=== PATIENT | female | born 1955 | race Caucasian/White ===

== ENCOUNTER 2019-02-15 10:46 | Emergency (ER) | payer OTHER ==
[~2019-02-15] VITALS: Ht 157.5 cm; Wt 104.3 kg
[~2019-02-15 10:46] MED LIST: BENADRYL25 MG PO; COLACE100 MG PO; CYCLOBENZAPRINE5 MG PO; HYDROXYZINE HCL25 M2 PO; IBU800 MG PO; LAMICTAL 25 MG25 MG PO; LORAZEPAM 0.50.5 MG PO; LOVASTATIN 20 M20 MG PO; MAPAP500 M1 PO; MICARDIS 80 MG80 MG PO; NORVASC10 MG PO; PERCOCET 5-3251 EACH PO; SYNTHROID100 MC1 PO; TORADOL 10 MG T10 MG PO; VITAMIN D1000 UNI1 PO; ZANAFLEX2 M1 PO
[2019-02-15 11:39] LABS: HEMOGLOBIN 13.4 gm/dL (12.0-15.0); MCH 29.3 pg (26.0-34.0); MCHC 32.6 g/dL (28.0-37.0); MCV 89.7 fL (80.0-100.0); PLATELET COUNT 202 thou/uL (150-400); RBC 4.58 mil/uL (4.20-5.00); RDW 13.1 % (10.5-14.5)
[2019-02-15 11:58] LABS: ANION GAP 9 mmol/L (7-16); BUN 13 mg/dL (7-18); CALCIUM 9.8 mg/dL (8.5-10.1); CHLORIDE 96 mmol/L (98-107); CO2 28 mmol/L (21-32); CREATININE 0.9 mg/dL (0.6-1.0); GLUCOSE 95 mg/dL (74-106); POTASSIUM 3.1 mmol/L (3.5-5.1); SODIUM 133 mmol/L (136-145)
[2019-02-15 12:07] LABS: ALBUMIN 3.5 g/dL (3.4-5.0); SGOT 28 U/L (15-37); SGPT 31 U/L (30-65); TOTAL BILIRUBIN 0.4 mg/dL (<0.1-1.0); TOTAL PROTEIN 7.4 g/dL (6.4-8.2); TROPONIN-I <0.06 ng/mL (<0.06)
[2019-02-15 12:34] LABS: AMP/METHAMP Negative (Negative); BARBITURATES Negative (Negative); BENZODIAZEPINES Negative (Negative); COCAINE Negative (Negative); METHADONE Negative (Negative); OPIATES Negative (Negative); PCP Negative (Negative)
[2019-02-15 12:54] LABS: ABSOLUTE NEUTROPHILS 3.2 thou/uL (1.4-8.2)
[2019-02-15 12:56] LABS: ANISOCYTOSIS SLIGHT
[2019-02-15] MEDS ORDERED: POTASSIUM20 PO (12:57)
[2019-02-15 13:22] VITALS: BP 120/51
--- NOTE | 2019-02-15 13:53 | EKG ---
[place] [address] [facility] [employer] [address] ELECTROCARDIOGRAM REPORT Name: HERNANDO BOO Room #: [facility]#: [id number] Admission: 02/15/19 Attend Phys: Discharge: 02/15/19 Date of : 59 Report #: [id number] THIS REPORT FOR: //name// [facility] ED Test Date: 2019-02-15 Test Time: 11:34:53 Pat Name: HERNANDO BOO Department: Room: Gender: F [employer]: : 1955 Requested By: Roxy Maldonado Order Number: [id number] MD: Jeord Richmond Measurements Intervals Jay Em Rate: 46 P: 39 KS: 195 QRS: 10 QRSD: 105 T: 56 QT: 517 QTc: 453 Interpretive Statements Sinus bradycardia Otherwise normal tracing No previous ECG available for comparison Electronically Signed On 02-15-2019 13:53:00 [employer] by Jerod Richmond [email or web address] <ELECTRONICALLY SIGNED> By: Jerod Richmond MD, [facility] 02/15/19 1353 [id number] Jerod Richmond MD, FACC /EPI
== END 2019-02-15 13:33 | disposition home or self-care (01) ==
LOC: ER 10:46
PROVIDERS: Physician Assistant
DX: E87.6 Hypokalemia (principal); R42 Dizziness and giddiness; I10 Essential (primary) hypertension; E78.5 Hyperlipidemia, unspecified; E03.9 Hypothyroidism, unspecified; J45.909 Unspecified asthma, uncomplicated; F17.210 Nicotine dependence, cigarettes, uncomplicated; Z88.2 Allergy status to sulfonamides; Z88.8 Allergy status to other drugs, medicaments and biological substances

== ENCOUNTER 2019-04-24 02:11 | Emergency (ER) | payer MEDICARE ==
[~2019-04-24] VITALS: Ht 157.5 cm; Wt 120.2 kg
[~2019-04-24 02:11] MED LIST changes: +POTASSIUM20 PO
[2019-04-24 04:30] VITALS: BP 156/74
== END 2019-04-24 04:45 | disposition home or self-care (01) ==
LOC: ER 02:11
DX: S90.822A Blister (nonthermal), left foot, initial encounter (principal); S90.821A Blister (nonthermal), right foot, initial encounter; J45.909 Unspecified asthma, uncomplicated; I10 Essential (primary) hypertension; E78.5 Hyperlipidemia, unspecified; F17.210 Nicotine dependence, cigarettes, uncomplicated; Z79.899 Other long term (current) drug therapy; Z88.8 Allergy status to other drugs, medicaments and biological substances; Z88.2 Allergy status to sulfonamides; X58.XXXA Exposure to other specified factors, initial encounter; Y93.89 Activity, other specified; Y92.89 Other specified places as the place of occurrence of the external cause; Y99.8 Other external cause status